=== PATIENT | male | born 1995 | race Two or more races ===

== ENCOUNTER 2019-06-26 09:33 | Emergency (ER) | payer OTHER ==
[~2019-06-26] VITALS: Ht 165.1 cm; Wt 52.2 kg
== END 2019-06-26 13:28 | disposition home or self-care (01) ==
LOC: ER 09:33
DX: L05.01 Pilonidal cyst with abscess (principal)

== ENCOUNTER 2019-07-12 12:50 | Emergency (ER) | payer OTHER ==
[~2019-07-12] VITALS: Ht 162.6 cm; Wt 52.2 kg
[2019-07-12] MEDS ORDERED: CLEOCIN HCL300 MG PO (19:54)
[2019-07-12] MEDS ORDERED: KETO10TA2 PO (19:54)
== END 2019-07-12 20:05 | disposition home or self-care (01) ==
LOC: ER 12:50
DX: S90.872A Other superficial bite of left foot, initial encounter (principal); W57.XXXA Bitten or stung by nonvenomous insect and other nonvenomous arthropods, initial encounter; Y93.89 Activity, other specified; Y92.832 Beach as the place of occurrence of the external cause; Y99.8 Other external cause status

== ENCOUNTER 2019-07-23 17:46 | Emergency (ER) | payer OTHER ==
[~2019-07-23] VITALS: Ht 165.1 cm; Wt 51.7 kg
[~2019-07-23 17:46] MED LIST: CLEOCIN HCL300 MG PO; KETO10TA2 PO
== END 2019-07-23 21:47 | disposition home or self-care (01) ==
LOC: ER 17:46
DX: L03.116 Cellulitis of left lower limb (principal)

== ENCOUNTER 2020-04-12 15:41 | Emergency (ER) | payer OTHER ==
[~2020-04-12] VITALS: Ht 165.1 cm; Wt 52.2 kg
== END 2020-04-12 18:35 | disposition home or self-care (01) ==
LOC: ER 15:41
DX: Z03.818 Encounter for observation for suspected exposure to other biological agents ruled out (principal)

== ENCOUNTER 2024-04-13 15:17 | Emergency (ER) | payer OTHER ==
[~2024-04-13] VITALS: Ht 165.1 cm; Wt 52.2 kg
[2024-04-13] MEDS ORDERED: ACETAMINOPHEN 500 MG GEL..CAP PO ONE (17:00)
[2024-04-13 17:31] LABS: HEMATOCRIT 43.9 % (39.0-48.0); HEMOGLOBIN 15.8 g/dL (13-16.00); MEAN CELL VOLUME 93.5 fL (80.0-100.00); MEAN CORPUSCULAR HEMOGLOBIN 33.6 pg (27.00-32.0); MEAN CORPUSCULAR HGB CONC 35.9 g/dl (32.0-36.0); PLATELET COUNT 213 K/uL (150-450); RED CELL DISTRIBUTION WIDTH 11.9 % (11.5-14.5)
== END 2024-04-13 18:47 | disposition home or self-care (01) ==
LOC: ER 15:18
PROVIDERS: General Practice
DX: B34.9 Viral infection, unspecified (principal); R21 Rash and other nonspecific skin eruption; Z20.822 Contact with and (suspected) exposure to COVID-19; Z88.0 Allergy status to penicillin